=== PATIENT | male | born 1975 | race Caucasian/White ===

== ENCOUNTER → 2017-07-02 | Outpatient (CLI) | payer OTHER ==
[~2017-07-02] MED LIST: ANDRODERM4 MG/24 HR TD; GABAPENTIN300 M1 PO; LISINOPRIL 10MG10 MG PO; LISINOPRIL/HCTZ1 TA3 PO; LORTAB 5/500 501 TAB PO; MELOXICAM15 MG PO; MONTELUKAST SOD10 MG PO; NORCO 325 MG-101 TAB PO; PHENERGAN25 M3 PO; TAMSULOSIN HCL0.4 MG PO; TESTOSTERON200 MG/ML IM; TIZANIDINE HCL 44 MG NG; VENLAFAXINE HY150 MG PO
--- NOTE | 2017-07-02 16:07 | RADIOLOGY REPORT PS360 ---
CHEST(2 VIEWS-NOT PORTABLE) COMPARISON: PA and lateral chest 09/27/2016 HISTORY: Upper back pain TECHNIQUE: PA and lateral chest FINDINGS: The lung chavez are well expanded and appear clear of infiltrate. There is borderline cardio megaly without failure. There are calcified hilar nodes bilaterally and there are couple of calcified granuloma within both lung chavez. There is no pleural fluid. IMPRESSION: Borderline cardio megaly, old granulomatous disease, no acute chest pathology noted
== END ==
LOC: RT 15:23
DX: M54.9 Dorsalgia, unspecified (principal)